=== PATIENT | male | born 1990 | race African-American/Black ===

== ENCOUNTER 2019-12-14 18:36 | Emergency (ER) | payer MEDICAID ==
[~2019-12-14] VITALS: Ht 160 cm; Wt 46.9 kg
[2019-12-14] MEDS ORDERED: IV NORMAL SALINE 1000ML BAG 1,000 ML IV SCH (19:16)
[2019-12-14] MEDS ORDERED: ONDANSETRON PF 4 MG/2 ML VIAL. IVP ONE (19:30)
[2019-12-14] MEDS ORDERED: fentaNYL PF VIAL 100 MCG/2 ML VIAL IV PRN (19:30)
--- NOTE | 2019-12-14 19:32 | PHYS DOC ---
General Adult EDM: Chief Complaint: PAIN CONTROL HPI: HPI: Patient is a 29 year old male/self identifies as female who presents with complaint of sickle cell pain crisis along with priapism that started at about 7:30 in the morning yesterday. Patient states that symptoms have been present ever since. He indicates the last episode of priapism was approximately a year ago. Patient rates pain at a 9 out of 10. Pain is primarily present at the base of the neck all the way down to the mid thighs posteriorly. Patient denies any chest pain or shortness of breath. Also denies any fever. Patient has had no vomiting or diarrhea. [] Review of Systems: Review of Systems: Constitutional: Denies fever or chills. [] Respiratory: Denies cough or shortness of breath. [] Cardiovascular: Denies chest pain or edema. [] GI: Denies abdominal pain, nausea, vomiting or diarrhea. [] Musculoskeletal: Complains of back and posterior thigh pain. [] Integument: Denies rash. [] Neurologic: Denies headache, focal weakness or sensory changes. [] Heart Score: Risk Factors: Risk Factors: DM, Current or recent (<one month) smoker, HTN, HLP, family history of CAD, obesity. Risk Scores: Score 0 - 3: 2.5% MACE over next 6 weeks - Discharge Home Score 4 - 6: 20.3% MACE over next 6 weeks - Admit for Clinical Observation Score 7 - 10: 72.7% MACE over next 6 weeks - Early Invasive Strategies Current Medications: Current Medications Medications (Trade) Dose Ordered Sig/Sol Start Time Stop Time Status Last Admin Dose Admin Fentanyl Citrate (Fentanyl 2ml Vial) 50 mcg PRN Q15MIN PRN 12/14/19 19:30 12/15/19 19:29 UNV Ondansetron HCl (Zofran) 4 mg 1X ONCE 12/14/19 19:30 12/14/19 19:31 UNV Sodium Chloride 1,000 ml @ 1,000 mls/hr Q1H 12/14/19 19:16 12/14/19 20:15 UNV Physical Exam: PE: Constitutional: Well developed, well nourished, no acute distress, non-toxic appearance. [] HENT: Normocephalic, atraumatic, bilateral external ears normal, oropharynx moist, no oral exudates, nose normal. [] Eyes: PERRLA, EOMI, conjunctiva normal, no discharge. [] Neck: Normal range of motion, no tenderness, supple, no stridor. [] Cardiovascular: Regular rate and rhythm [] Lungs & Thorax: Bilateral breath sounds clear to auscultation [] Abdomen: Bowel sounds normal, soft, no tenderness. [] Skin: Warm, dry, no erythema, no rash. [] : Patient is noted to have erection. [] Extremities: No tenderness, no cyanosis, no clubbing, ROM intact. [] Neurologic: Alert and oriented X 3, no focal deficits noted. [] EKG: EKG: [] Radiology/Procedures: Radiology/Procedures: [] Course & Med Decision Making: Course & Med Decision Making Pertinent Labs and Imaging studies reviewed. (See chart for details) Patient moved to room upon arrival was evaluated by ER medical staff after which an IV was established and blood work was drawn. transfer center has additionally been contacted given that this facility does not have access to urology. Dr. Patiño will be accepting patient in transfer. Dianna Disclaimer: Dianna Disclaimer: This electronic medical record was generated, in whole or in part, using a voice recognition dictation system. Departure Departure Impression: Primary Impression: Sickle cell pain crisis Additional Impression: Priapism Disposition: 02 TRANSFER [facility] Condition: IMPROVED HECTOR RAHMAN Jr. DO Dec 14, 2019 19:32
[2019-12-14 19:37] LABS: BASO % 1 % (0-3); EOS # 0.1 x10^3/uL (0.0-0.7); EOS % 1 % (0-3); HEMOGLOBIN 12.9 g/dL (12.0-15.5); LYMPH # 2.4 x10^3/uL (1.0-4.8); LYMPH % 25 % (24-48); MEAN CORPUSCULAR HEMOGLOBIN 39 pg (25-35); MEAN CORPUSCULAR HGB CONC 35 g/dL (31-37); MEAN CORPUSCULAR VOLUME 112 fL (79-100); MONO # 0.5 x10^3/uL (0.0-1.1); MONO % 5 % (0-9); NEUT # 6.7 x10^3/uL (1.8-7.7); NEUT % 69 % (31-73); PLATELET COUNT 362 x10^3/uL (140-400); RED BLOOD COUNT 3.32 x10^6/uL (3.50-5.40); RED CELL DISTRIBUTION WIDTH 18.1 % (11.5-14.5); WHITE BLOOD COUNT 9.6 x10^3/uL (4.0-11.0)
[2019-12-14 19:44] LABS: CALCIUM 8.5 mg/dL (8.5-10.1); CREATININE 0.8 mg/dL (0.6-1.0); GFR 103.3; POTASSIUM 4.2 mmol/L (3.5-5.1)
[2019-12-14 19:50] LABS: ALBUMIN/GLOBULIN RATIO 1.4 (1.0-1.7); TOTAL BILIRUBIN 1.4 mg/dL (0.2-1.0); TOTAL PROTEIN 6.8 g/dL (6.4-8.2)
[2019-12-14 20:02] LABS: ANISOCYTOSIS SLIGHT; PAPPENHEIMER BODIES PRESENT; PLT ESTIMATE ADEQUATE (ADEQUATE); POLYCHROMASIA SLIGHT; SICKLE CELLS FEW; TARGET CELLS MOD
[2019-12-14 20:04] LABS: BIZZARE CELLS OCC; HOWELL-JOLLY BODIES PRESENT
[2019-12-14 22:00] VITALS: BP 98/62
== END 2019-12-14 22:10 | disposition short-term general hospital (02) ==
LOC: ER 18:36 → EDSEX 18:36 → ER 22:10
DX: D57.00 Hb-SS disease with crisis, unspecified (principal); N48.30 Priapism, unspecified; M79.651 Pain in right thigh; M79.652 Pain in left thigh
CPT/HCPCS: 36415; 80053; 85025; 85045; 96374; 96375; 99285; J2405; J3010; J7030